=== PATIENT | male | born 1960 | race Caucasian/White ===

== ENCOUNTER 2024-02-25 18:31 | Emergency (ER) | payer OTHER ==
[~2024-02-25] VITALS: Ht 165.1 cm; Wt 78.9 kg
[2024-02-25 18:41] VITALS: BP_SYST 121; PULSE 74; RESP 16; TEMP 97.3; O2SAT 98
[2024-02-25 20:20] VITALS: BP_SYST 121; PULSE 74; RESP 16; TEMP 97.3; O2SAT 98
[2024-02-26] MEDS ORDERED: BACITRACIN 1 GM OINT TP ONE (04:38)
== END 2024-02-25 20:20 | disposition home or self-care (01) ==
LOC: SED 18:31
DX: S01.01XA Laceration without foreign body of scalp, initial encounter (principal); S09.8XXA Other specified injuries of head, initial encounter; W08.XXXA Fall from other furniture, initial encounter; Y93.89 Activity, other specified; Y92.89 Other specified places as the place of occurrence of the external cause; Y99.8 Other external cause status
CPT/HCPCS: 70450-TC; 99284

== ENCOUNTER 2024-03-05 16:15 | Emergency (ER) | payer OTHER ==
[~2024-03-05] VITALS: Ht 165.1 cm; Wt 74.4 kg
[2024-03-05 16:15] VITALS: BP_SYST 129; PULSE 78; RESP 19; TEMP 97.8; O2SAT 98
[2024-03-05 19:51] VITALS: BP_SYST 121; PULSE 68; RESP 18; TEMP 97.8; O2SAT 100
== END 2024-03-05 19:51 | disposition home or self-care (01) ==
LOC: SED 16:15
DX: S01.01XD Laceration without foreign body of scalp, subsequent encounter (principal); Z48.02 Encounter for removal of sutures; X58.XXXD Exposure to other specified factors, subsequent encounter
CPT/HCPCS: 99281